=== PATIENT | female | born 1970 | race Caucasian/White ===

== ENCOUNTER 2017-07-06 14:45 | Outpatient (CLI) | payer OTHER | END 2017-07-06 14:56 | disposition home or self-care (01) | LOC: MAMO-SONO 14:45 | DX: Z12.31 Encounter for screening mammogram for malignant neoplasm of breast (principal); N61.0 Mastitis without abscess ==

== ENCOUNTER 2018-10-10 13:16 | Outpatient (CLI) | payer OTHER | END 2018-10-10 17:00 | disposition home or self-care (01) | LOC: SONOGRAMA 13:16 | DX: M79.662 Pain in left lower leg (principal) ==

== ENCOUNTER → 2018-12-27 | Outpatient (CLI) | payer OTHER | END | disposition home or self-care (01) | LOC: NUCLEAR 11:15 | DX: I87.2 Venous insufficiency (chronic) (peripheral) (principal); R60.0 Localized edema ==

== ENCOUNTER 2020-02-11 14:48 | Outpatient (CLI) | payer OTHER | END 2020-02-11 15:01 | disposition home or self-care (01) | LOC: MAMO-SONO 14:48 | PROVIDERS: ATTEND Obstetrics & Gynecology | DX: Z12.31 Encounter for screening mammogram for malignant neoplasm of breast (principal); N60.11 Diffuse cystic mastopathy of right breast; N60.12 Diffuse cystic mastopathy of left breast ==

== ENCOUNTER 2021-01-28 11:41 | Outpatient (CLI) | payer OTHER | END 2021-01-28 11:54 | disposition home or self-care (01) | LOC: RAD 11:41 | PROVIDERS: ATTEND Orthopaedic Surgery | DX: M25.561 Pain in right knee (principal) ==

== ENCOUNTER 2021-03-09 15:01 | Outpatient (CLI) | payer OTHER | END 2021-03-09 15:16 | disposition home or self-care (01) | LOC: NUCLEAR 15:01 | PROVIDERS: ATTEND Orthopaedic Surgery | DX: M81.0 Age-related osteoporosis without current pathological fracture (principal) ==

== ENCOUNTER 2021-03-23 15:46 | Outpatient (CLI) | payer OTHER | END 2021-03-23 15:48 | disposition home or self-care (01) | LOC: LAB 15:46 | PROVIDERS: ATTEND Orthopaedic Surgery | DX: M85.88 Other specified disorders of bone density and structure, other site (principal); E56.1 Deficiency of vitamin K; E83.42 Hypomagnesemia ==

== ENCOUNTER 2021-04-17 08:00 | Outpatient (CLI) | payer OTHER | END 2021-04-17 08:30 | disposition home or self-care (01) | LOC: PPH VACUNA 08:00 | PROVIDERS: ATTEND Emergency Medicine Pediatric Emergency Medicine | DX: Z23 Encounter for immunization (principal) ==

== ENCOUNTER 2021-09-07 11:17 | Outpatient (CLI) | payer OTHER | END 2021-09-07 11:50 | disposition home or self-care (01) | LOC: RAD 11:17 | PROVIDERS: ATTEND Family Medicine | DX: M79.672 Pain in left foot (principal) ==

== ENCOUNTER 2021-09-15 13:59 | Outpatient (CLI) | payer OTHER | END 2021-09-15 14:08 | disposition home or self-care (01) | LOC: RAD 13:59 | PROVIDERS: ATTEND Family Medicine | DX: M25.552 Pain in left hip (principal) ==

== ENCOUNTER 2022-03-17 11:03 | Outpatient (CLI) | payer OTHER | END 2022-03-17 11:05 | disposition home or self-care (01) | LOC: RAD 11:03 | PROVIDERS: ATTEND Physical Medicine & Rehabilitation | DX: M25.521 Pain in right elbow (principal) ==

== ENCOUNTER 2023-02-01 10:58 | Outpatient (CLI) | payer OTHER | END 2023-02-01 10:59 | disposition home or self-care (01) | LOC: NUCLEAR 10:58 | PROVIDERS: ATTEND Obstetrics & Gynecology | DX: M81.0 Age-related osteoporosis without current pathological fracture (principal) ==

== ENCOUNTER 2023-03-23 15:11 | Outpatient (CLI) | payer OTHER | END 2023-03-23 15:21 | disposition home or self-care (01) | LOC: RAD 15:11 | PROVIDERS: ATTEND Orthopaedic Surgery | DX: M54.2 Cervicalgia (principal); M54.59 Other low back pain ==

== ENCOUNTER 2023-04-13 15:49 | Outpatient (CLI) | payer OTHER | END 2023-04-13 15:58 | disposition home or self-care (01) | LOC: RAD 15:49 | PROVIDERS: ATTEND Orthopaedic Surgery | DX: M25.521 Pain in right elbow (principal); M77.11 Lateral epicondylitis, right elbow ==

== ENCOUNTER 2023-04-29 13:44 | Outpatient (CLI) | payer OTHER | END 2023-04-29 13:52 | disposition home or self-care (01) | LOC: RAD 13:44 | PROVIDERS: ATTEND Orthopaedic Surgery | DX: R10.32 Left lower quadrant pain (principal) ==

== ENCOUNTER 2023-06-29 09:47 | Outpatient (CLI) | payer OTHER | END 2023-06-29 09:48 | disposition home or self-care (01) | LOC: LAB 09:47 | PROVIDERS: ATTEND Orthopaedic Surgery | DX: E55.9 Vitamin D deficiency, unspecified (principal); M85.9 Disorder of bone density and structure, unspecified; E56.1 Deficiency of vitamin K ==

== ENCOUNTER 2023-08-01 15:18 | Outpatient (CLI) | payer OTHER | END 2023-08-01 15:26 | disposition home or self-care (01) | LOC: RAD 15:18 | PROVIDERS: ATTEND Family Medicine | DX: R05.1 Acute cough (principal) ==

== ENCOUNTER 2023-09-29 16:06 | Outpatient (CLI) | payer OTHER | END 2023-09-29 16:14 | disposition home or self-care (01) | LOC: RAD 16:06 | PROVIDERS: ATTEND Orthopaedic Surgery | DX: M25.551 Pain in right hip (principal); M25.552 Pain in left hip; M54.50 Low back pain, unspecified; M25.561 Pain in right knee; M25.562 Pain in left knee ==

== ENCOUNTER 2024-04-18 15:52 | Outpatient (CLI) | payer OTHER | END 2024-04-18 16:03 | disposition home or self-care (01) | LOC: RAD 15:52 | PROVIDERS: ATTEND Physical Medicine & Rehabilitation | DX: M54.2 Cervicalgia (principal) ==

== ENCOUNTER 2024-05-30 07:58 | Outpatient (CLI) | payer OTHER | END 2024-05-30 08:08 | disposition home or self-care (01) | LOC: SONOGRAMA 07:58 | PROVIDERS: ATTEND Internal Medicine | DX: R10.13 Epigastric pain (principal); R10.11 Right upper quadrant pain; K76.0 Fatty (change of) liver, not elsewhere classified ==

== ENCOUNTER 2024-08-29 14:55 | Outpatient (CLI) | payer OTHER | END 2024-08-29 15:02 | disposition home or self-care (01) | LOC: TOM 14:55 | PROVIDERS: ATTEND Neurological Surgery | DX: M54.50 Low back pain, unspecified (principal); M48.061 Spinal stenosis, lumbar region without neurogenic claudication ==

== ENCOUNTER 2024-09-27 07:44 | Outpatient (CLI) | payer OTHER | END 2024-09-27 07:45 | disposition home or self-care (01) | LOC: NUCLEAR 07:44 | PROVIDERS: ATTEND Neurological Surgery | DX: M54.50 Low back pain, unspecified (principal); M48.061 Spinal stenosis, lumbar region without neurogenic claudication ==

== ENCOUNTER 2025-04-09 14:54 | Outpatient (CLI) | payer OTHER | END 2025-04-09 15:32 | disposition home or self-care (01) | LOC: RAD 14:54 | PROVIDERS: ATTEND Neurological Surgery | DX: M48.062 Spinal stenosis, lumbar region with neurogenic claudication (principal); M54.16 Radiculopathy, lumbar region; Z01.818 Encounter for other preprocedural examination ==

== ENCOUNTER 2025-06-04 14:39 | Outpatient (CLI) | payer OTHER | END 2025-06-04 14:48 | disposition home or self-care (01) | LOC: RAD 14:39 | PROVIDERS: ATTEND Neurological Surgery | DX: M48.061 Spinal stenosis, lumbar region without neurogenic claudication (principal) ==